=== PATIENT | male | born 1970 | race Caucasian/White ===

== ENCOUNTER 2018-07-10 20:40 | Emergency (ER) | payer OTHER ==
--- OUTSIDE RECORDS SUMMARY | 2018-07-10 20:42 | XMS REPORT | Clinical Summary ---
:1970 Author Organization [facility] Address [address] [place] [address] Care Team Providers Name Role Phone Gisell Wheeler MD Primary Care Provider Unavailable Allergies Active Allergy Reactions Severity Noted Date Comments Adhesive Other (See Comments) 07/01/2015 blisters Heparin 01/26/2016 Heparin Analogues Other (See Comments) 07/01/2015 thrombocytopenia Medications Medication Sig Dispensed Refills Start Date End Date Status esomeprazole (NEXIUM) 20 Take 20 mg by 0 Active MG capsule mouth 2 (two) times daily . PARoxetine (PAXIL) 10 MG Take 10 mg by 0 Active tablet mouth every morning. Active Problems Problem Noted Date Mesothelioma of peritoneum 01/26/2016 Peritoneal mesothelioma s/p ex lap and HIPEC 01/2508/01/2015 Social History Tobacco Use Types Packs/Day Years Used Date Current Every Day Smoker 1 1 Alcohol Use Drinks/Week oz/Week Comments Yes 1 Glasses of wine 1.2 1 Cans of beer Sex Assigned at Date Recorded Not on file Job Start Date Occupation Industry Not on file Not on file Not on file Travel History Travel Start Travel End No recent travel history available. Last Filed Vital Signs Not on file Plan of Treatment Not on file Results Not on fileafter 07/09/2017 Insurance Payer Benefit Plan / Group Subscriber ID Type Phone Address [employer] xxxxxxxxxx Advance Directives For more information, please contact:[facility] [facility] [place] [phone] Code Status Date Activated Date Inactivated Comments Full Code 01/26/2016 6:37 PM 02/03/2016 2:19 PM This code status was determined by: Patient Full Code 01/26/2016 6:44 AM 01/26/2016 6:37 PM This code status was determined by: Patient Full Code 08/01/2015 7:10 AM 08/01/2015 3:31 PM This code status was determined by: Patient
--- OUTSIDE RECORDS SUMMARY | 2018-07-10 20:43 | XMS REPORT ---
:1970 [facility] Address [address] [place] [address] [address] [place] [address] Care Team Providers Name Role Phone Unavailable Unavailable Unavailable Payers Payer Name Policy Type Policy Number Effective Date Expiration Date Problems This patient has no known problems. Allergies, Adverse Reactions, Alerts Allergy Allergy Status Severity Reaction(s) Onset Inactive Treating Comments Name Type Date Date Clinician payam MORTENSEN Active U 2016-01 00:00:0 0 Medications This patient has no known medications.
[2018-07-10] MEDS ORDERED: MORPHINE 4 MG/ML SYR ONE (21:57)
[2018-07-10] MEDS ORDERED: ONDANSETRON 4 MG/2 ML VIAL ONE (21:57)
[2018-07-10] MEDS ORDERED: MAGNE/ALUM HYDROXD 30 ML UCUP ONE (21:57)
[2018-07-10] MEDS ORDERED: NA CHLORIDE 0.9% 2,000 ML ONE (21:58)
[2018-07-10] MEDS ORDERED: LIDOCAINE VISCOUS 2% SOLN 15 ML UDC ONE (21:58)
[2018-07-10] MEDS ORDERED: FAMOTIDINE 20 MG/2 ML VIAL IV ONE (21:58)
[2018-07-10 22:28] LABS: Absolute Lymphocytes (CBC) 2.8 K/uL (0.7-4.9); Absolute Monocytes 1.8 K/uL (0.1-1.3); Absolute Neutrophil 14.5 K/uL (1.8-8.0); Basophils % 0.6 % (0-1.3); Eosinophils % 0.7 % (0-4.4); Hematocrit 48.1 % (39.6-49.0); Lymphocytes % 14.6 % (15.3-44.8); MPV 9.3 fL (7.6-11.3); Monocytes % 9.5 % (3.3-12.3); RBC Red Blood Cell Count 5.48 M/uL (4.33-5.43)
[2018-07-10 22:29] LABS: Protime INR 0.96
[2018-07-10 22:42] LABS: ALT/SGPT 25 U/L (12-78); AST/SGOT 15 U/L (15-37); Albumin 4.2 g/dL (3.4-5.0); Alkaline Phosphatase 85 U/L (45-117); BUN Blood Urea Nitrogen 21 mg/dL (7-18); Bicarbonate 29 mmol/L (21-32); Bilirubin Direct < 0.1 mg/dL (0-0.2); Bilirubin Total 0.4 mg/dL (0.2-1.0); Glucose Level 118 mg/dL (74-106); Lipase 103 U/L (73-393); Magnesium 2.1 mg/dL (1.8-2.4); NT PRO-BNP 16 pg/mL (<125); Potassium 4.2 mmol/L (3.5-5.1); Protein, Total 7.9 g/dL (6.4-8.2); Sodium Level 140 mmol/L (136-145); Troponin (Emerg Dept Use Only) < 0.02 ng/mL (0.0-0.045)
--- NOTE | 2018-07-10 22:46 | EDPHYS ---
Physician Documentation [facility] Name: Rosita Osborn Age: 47 yrs Sex: Male : 1970 Arrival Date: 07/10/2018 Time: 20:42 Bed 6 Private MD: TRAVIS Physician Jakob Espinal HPI: 07/10 21:42 This 47 yrs old Male presents to ER via Ambulatory with complaints of jan Abdominal Pain - severe, hx of CA. 21:42 The patient presents with abdominal pain in the upper abdomen, in the lower abdomen. jan Onset: The symptoms/episode began/occurred 1 day(s) ago. The symptoms do not radiate. Associated signs and symptoms: Pertinent positives: nausea and vomiting. The symptoms are described as constant, crampy. Modifying factors: The symptoms are alleviated by nothing, the symptoms are aggravated by nothing. Severity of pain: At its worst the pain was moderate severe in the emergency department the pain is unchanged. The patient has not experienced similar symptoms in the past. Historical: - Allergies: 21:07 No Known Allergies; ed1 - Home Meds: 21:07 Unable to obtain [Active]; ed1 - PMHx: 21:07 Cancer; ed1 - PSHx: 21:07 Multiple abdominal surgeries; Left shoulder; Knee surgery; ed1 - Immunization history:: Adult Immunizations up to date. - Social history:: Smoking status: Patient uses tobacco products, smokes one pack cigarettes per day. - Ebola Screening: : Patient denies travel to an Ebola-affected area in the 21 days before illness onset No symptoms or risks identified at this time. - Family history:: not pertinent. ROS: 21:42 Constitutional: Negative for fever, chills, and weight loss, Eyes: Negative for injury, jan pain, redness, and discharge, ENT: Negative for injury, pain, and discharge, Neck: Negative for injury, pain, and swelling, Cardiovascular: Negative for chest pain, palpitations, and edema, Respiratory: Negative for shortness of breath, cough, wheezing, and pleuritic chest pain, Back: Negative for injury and pain, : Negative for injury, bleeding, discharge, and swelling, MS/Extremity: Negative for injury and deformity, Skin: Negative for injury, rash, and discoloration, Neuro: Negative for headache, weakness, numbness, tingling, and seizure, Psych: Negative for depression, anxiety, suicide ideation, homicidal ideation, and hallucinations, Allergy/Immunology: Negative for hives, rash, and allergies, Endocrine: Negative for neck swelling, polydipsia, polyuria, polyphagia, and marked weight changes. 21:42 Abdomen/GI: Positive for abdominal pain, nausea and vomiting, of the right upper quadrant, left upper quadrant, right lower quadrant and left lower quadrant. Exam: 21:42 Constitutional: This is a well developed, well nourished patient who is awake, alert, jan and in no acute distress. Head/Face: Normocephalic, atraumatic. Eyes: Pupils equal round and reactive to light, extra-ocular motions intact. Lids and lashes normal. Conjunctiva and sclera are non-icteric and not injected. Cornea within normal limits. Periorbital areas with no swelling, redness, or edema. ENT: Nares patent. No nasal discharge, no septal abnormalities noted. Tympanic membranes are normal and external auditory canals are clear. Oropharynx with no redness, swelling, or masses, exudates, or evidence of obstruction, uvula midline. Mucous membranes moist. Neck: Trachea midline, no thyromegaly or masses palpated, and no cervical lymphadenopathy. Supple, full range of motion without nuchal rigidity, or vertebral point tenderness. No Meningismus. Chest/axilla: Normal chest wall appearance and motion. Nontender with no deformity. No lesions are appreciated. Cardiovascular: Regular rate and rhythm with a normal S1 and S2. No gallops, murmurs, or rubs. Normal PMI, no JVD. No pulse deficits. Respiratory: Lungs have equal breath sounds bilaterally, clear to auscultation and percussion. No rales, rhonchi or wheezes noted. No increased work of breathing, no retractions or nasal flaring. Back: No spinal tenderness. No costovertebral tenderness. Full range of motion. Male : Normal genitalia with no discharge or lesions. Skin: Warm, dry with normal turgor. Normal color with no rashes, no lesions, and no evidence of cellulitis. MS/ Extremity: Pulses equal, no cyanosis. Neurovascular intact. Full, normal range of motion. Neuro: Awake and alert, GCS 15, oriented to person, place, time, and situation. Cranial nerves II-XII grossly intact. Motor strength 5/5 in all extremities. Sensory grossly intact. Cerebellar exam normal. Normal gait. Psych: Awake, alert, with orientation to person, place and time. Behavior, mood, and affect are within normal limits. 21:42 Abdomen/GI: Inspection: abdomen appears normal, Bowel sounds: normal, Palpation: moderate abdominal tenderness, in all quadrants, Liver: no appreciated palpable abnormalities, Hernia: not appreciated. Vital Signs: 21:07 BP 137 / 91; Pulse 101; Resp 20; Temp 97.2(O); Pulse Ox 96% on R/A; Weight 134.72 kg; ed1 Height 6 ft. 5 in. (195.58 cm); Pain 10/10; 22:27 BP 128 / 92; Pulse 91; Resp 17; Temp 97.5; Pulse Ox 99% on R/A; rr5 23:00 BP 115 / 70; Pulse 90; Resp 18; Pulse Ox 99% on R/A; Pain 0/10; rr5 07/11 00:00 BP 125 / 74; Pulse 77; Resp 16; Pulse Ox 98% on R/A; Pain 0/10; rr5 01:00 BP 118 / 70; Pulse 79; Resp 16 S; Pulse Ox 98% ; rr5 02:00 BP 112 / 77; Pulse 75; Resp 17; Pulse Ox 98% on R/A; Pain 0/10; rr5 03:20 BP 121 / 70; Pulse 79; Resp 16; Temp 97.9; Pulse Ox 99% ; Pain 0/10; rr5 07/10 21:07 Body Mass Index 35.22 (134.72 kg, 195.58 cm) ed1 MDM: 07/10 21:10 Patient medically screened. [facility] 21:45 Data reviewed: vital signs, nurses notes, lab test result(s), EKG, radiologic studies, [facility] CT scan, plain films. 07/10 21:42 Order name: Basic Metabolic Panel; Complete Time: 02:06 [facility] 07/10 21:42 Order name: CBC with Diff; Complete Time: 22:30 [facility] 07/10 21:42 Order name: LFT's; Complete Time: 02:06 [facility] 07/10 21:42 Order name: Magnesium; Complete Time: 02:06 [facility] 07/10 21:42 Order name: NT PRO-BNP; Complete Time: 02:06 [facility] 07/10 21:42 Order name: PT-INR; Complete Time: 22:30 [facility] 07/10 21:42 Order name: Troponin (emerg Dept Use Only); Complete Time: 02:06 [facility] 07/10 21:42 Order name: XRAY Chest (1 view) [facility] 07/10 21:42 Order name: Lipase; Complete Time: 02:06 [facility] 07/10 22:37 Order name: CT Abd/Pelvis - W/Contrast [facility] 07/11 00:51 Order name: Urine Dipstick--Ancillary (enter results); Complete Time: 02:06 [facility] 07/10 21:42 Order name: EKG; Complete Time: 22:00 [facility] 07/10 21:42 Order name: Cardiac monitoring; Complete Time: 22:24 [facility] 07/10 21:42 Order name: EKG - Nurse/Tech; Complete Time: 22:25 [facility] 07/10 21:42 Order name: IV Saline Lock; Complete Time: 22:25 [facility] 07/10 21:42 Order name: Labs collected and sent; Complete Time: 22:25 [facility] 07/10 21:42 Order name: O2 Per Protocol; Complete Time: 22:25 [facility] 07/10 21:42 Order name: O2 Sat Monitoring; Complete Time: 22:35 [facility] 07/10 21:42 Order name: Urine Dipstick-Ancillary (obtain specimen); Complete Time: 01:25 [facility] Administered Medications: 21:50 Drug: GI Cocktail without - (Maalox Suspension 30 ml, Lidocaine Liquid 2 % 15 rr5 ml) Route: PO; 07/11 01:24 Follow up: Response: No adverse reaction rr5 07/10 22:00 Drug: NS 0.9% 1000 ml Route: IV; Rate: 1 bolus; Site: right antecubital; rr5 23:30 Follow up: Response: No adverse reaction; IV Status: Completed infusion; IV Intake: rr5 1000ml 22:00 Drug: Zofran 4 mg Route: PO; rr5 23:00 Follow up: Response: No adverse reaction rr5 22:03 Drug: Pepcid 20 mg Route: IVP; Site: right antecubital; rr5 23:10 Follow up: Response: No adverse reaction rr5 22:06 Drug: morphine 4 mg Route: IVP; Site: right antecubital; rr5 23:10 Follow up: Response: No adverse reaction rr5 23:30 Drug: Flagyl 500 mg Volume: 100 ml; Route: IVPB; Rate: 200 ml/hr; Infused Over: 30 rr5 mins; Site: right antecubital; 07/11 00:00 Follow up: Response: No adverse reaction; IV Status: Completed infusion; IV Intake: rr5 100ml 07/10 23:31 Drug: NS 0.9% 1000 ml Route: IV; Rate: 125 ml/hr; Site: right antecubital; rr5 07/11 03:20 Follow up: Response: No adverse reaction; IV Status: Order to discontinue infusion; IV rr5 Intake: 500ml 00:30 Drug: Cipro 400 mg Volume: 200 ml; Route: IVPB; Infused Over: 60 mins; Site: right rr5 antecubital; 01:30 Follow up: Response: No adverse reaction; IV Status: Completed infusion; IV Intake: rr5 200ml Disposition: 07/11/18 03:01 Patient has left against medical advice. Impression: Abdominal tenderness - jejunum thickening, enteritis, Vomiting, Elevated white blood cell count. - Patients states they are going to Home. - Condition is Stable. - Discharge Instructions: Abdominal Pain, Adult, Nausea and Vomiting, Adult, Nausea and Vomiting, Adult, [id number], Abdominal Pain, Adult, [id number]. - Prescriptions for Bentyl 20 mg Oral Tablet - take 1 tablet by ORAL route every 6 hours As needed; 20 tablet. Pepcid 20 mg Oral Tablet - take 1 tablet by ORAL route every 12 hours for 10 days; 20 tablet. Zofran 4 mg Oral Tablet - take 1 tablet by ORAL route every 12 hours As needed; 20 tablet. Follow up: Private Physician; When: Upon discharge from the Emergency Department; Reason: Recheck today's complaints, Continuance of care, Re-evaluation by your physician. - Problem is new. - Symptoms have improved. Signatures: Dispatcher [employer] EDMS Jakob Espinal MD MD cha Riggs, Erika RN RN ed1 Anibal Lee, SHARI RN rr5 Corrections: (The following items were deleted from the chart) 02:59 07/10 22:46 07/10/2018 22:46 Transfer ordered to [facility]. Diagnosis is Abdominal tenderness; Elevated white blood cell count; Vomiting. Reason for transfer: Higher level of care. Accepting physician is to [facility]. Condition is Fair. Problem is new. Symptoms have improved. [facility] 07/11 03:24 03:01 07/11/2018 03:01 Patients has left against medical advice. Impression: Abdominal rr5 tenderness - jejunum thickening, enteritis; Vomiting; Elevated white blood cell count. Patient states they are going to Home. Condition is Stable. Follow up: Private Physician; When: Upon discharge from the Emergency Department; Reason: Recheck today's complaints, Continuance of care, Re-evaluation by your physician. Problem is new. Symptoms have improved. jan
--- NOTE | 2018-07-10 22:46 | ER ---
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 Transition of care: patient was not received from another setting of care. Onset of symptoms was July 10, 2018. Risk Assessment: Do you want to hurt yourself or someone else? Patient reports no desire to harm self or others. Initial Sepsis Screen: Does the patient meet any 2 criteria? No. Patient's initial sepsis screen is negative. Does the patient have a suspected source of infection? No. Patient's initial sepsis screen is negative. Care prior to arrival: None. 21:05 Method Of Arrival: Ambulatory ed1 21:05 Acuity: NIKOLE 3 ed1 Triage Assessment: 21:07 General: Appears uncomfortable, Behavior is calm, cooperative. Pain: Complains of pain ed1 in abdomen Pain currently is 10 out of 10 on a pain scale. GI: Reports nausea, vomiting. Historical: - Allergies: 21:07 No Known Allergies; ed1 - Home Meds: 21:07 Unable to obtain [Active]; ed1 - PMHx: 21:07 Cancer; ed1 - PSHx: 21:07 Multiple abdominal surgeries; Left shoulder; Knee surgery; ed1 - Immunization history:: Adult Immunizations up to date. - Social history:: Smoking status: Patient uses tobacco products, smokes one pack cigarettes per day. - Ebola Screening: : Patient denies travel to an Ebola-affected area in the 21 days before illness onset No symptoms or risks identified at this time. - Family history:: not pertinent. Screenin:00 Abuse screen: Denies threats or abuse. Denies injuries from another. Nutritional rr5 screening: No deficits noted. Tuberculosis screening: No symptoms or risk factors identified. Fall Risk IV access (20 points). Total Finley Fall Scale indicates No Risk (0-24 pts). Assessment: 21:20 General: Appears in no apparent distress. uncomfortable, Behavior is calm, cooperative, rr5 appropriate for age. Pain: Complains of pain in abdomen Pain does not radiate. Pain currently is 10 out of 10 on a pain scale. Quality of pain is described as crampy, Pain began gradually, Is intermittent. 21:20 Neuro: Level of Consciousness is awake, alert, obeys commands, Oriented to person, rr5 place, time, situation, Appropriate for age. Cardiovascular: Capillary refill < 3 seconds Patient's skin is warm and dry. Respiratory: Airway is patent Respiratory effort is even, unlabored, Respiratory pattern is regular, symmetrical. GI: Abdomen is round Bowel sounds present X 4 quads. Guarding noted X 4 quads. Reports lower abdominal pain, upper abdominal pain, nausea, vomiting. : No signs and/or symptoms were reported regarding the genitourinary system. EENT: No signs and/or symptoms were reported regarding the EENT system. Derm: Skin is intact, Skin temperature is warm. Musculoskeletal: Circulation, motion, and sensation intact. Capillary refill < 3 seconds, Range of motion: intact in all extremities. 22:30 Reassessment: Patient appears in no apparent distress at this time. Patient is alert, rr5 oriented x 3, equal unlabored respirations, skin warm/dry/pink. pain free after the medications given Patient denies pain at this time. Patient states feeling better. Patient states symptoms have improved. 23:05 Reassessment: Patient appears in no apparent distress at this time. No changes from rr5 previously documented assessment. Patient is alert, oriented x 3, equal unlabored respirations, skin warm/dry/pink. no complaints made awaiting for CT scan. 07/11 00:05 Reassessment: Patient appears in no apparent distress at this time. Patient is alert, rr5 oriented x 3, equal unlabored respirations, skin warm/dry/pink. went for CT scan. 01:00 Reassessment: Patient appears in no apparent distress at this time. No changes from rr5 previously documented assessment. Patient denies pain at this time. Patient states feeling better. 02:00 Reassessment: Patient appears in no apparent distress at this time. Patient is alert, rr5 oriented x 3, equal unlabored respirations, skin warm/dry/pink. awaiting for CT scan result. 03:20 Reassessment: Patient appears in no apparent distress at this time. Patient is alert, rr5 oriented x 3, equal unlabored respirations, skin warm/dry/pink. ED provider explained to patient the need for transfer and admission. explained the condition but the patient want to be discharge and [facility]. AMA form signed. no complaints made discharge instruction given and explained. Patient denies pain at this time. Patient states feeling better. Patient states symptoms have improved. Vital Signs: 07/10 21:07 BP 137 / 91; Pulse 101; Resp 20; Temp 97.2(O); Pulse Ox 96% on R/A; Weight 134.72 kg; ed1 Height 6 ft. 5 in. (195.58 cm); Pain 10/10; 22:27 BP 128 / 92; Pulse 91; Resp 17; Temp 97.5; Pulse Ox 99% on R/A; rr5 23:00 BP 115 / 70; Pulse 90; Resp 18; Pulse Ox 99% on R/A; Pain 0/10; rr5 07/11 00:00 BP 125 / 74; Pulse 77; Resp 16; Pulse Ox 98% on R/A; Pain 0/10; rr5 01:00 BP 118 / 70; Pulse 79; Resp 16 S; Pulse Ox 98% ; rr5 02:00 BP 112 / 77; Pulse 75; Resp 17; Pulse Ox 98% on R/A; Pain 0/10; rr5 03:20 BP 121 / 70; Pulse 79; Resp 16; Temp 97.9; Pulse Ox 99% ; Pain 0/10; rr5 07/10 21:07 Body Mass Index 35.22 (134.72 kg, 195.58 cm) ed1 ED Course: 07/10 20:42 Patient arrived in ED. am2 21:06 Triage completed. ed1 21:07 Arm band placed on right wrist. ed1 21:09 Jakob Espinal MD is Attending Physician. jan 21:35 Patient has correct armband on for positive identification. Placed in gown. Bed in low rr5 position. Call light in reach. Side rails up X2. teletypesetter monitor on. Pulse ox on. NIBP on. 21:41 Anibal Lee RN is Primary Nurse. rr5 22:00 No provider procedures requiring assistance completed. Inserted saline lock: 20 gauge rr5 in right antecubital area, using aseptic technique. Blood collected. 22:26 XRAY Chest (1 view) In Process Unspecified. EDMS 23:56 initiated transfer to the [facility] spoke with Darrel. mw2 07/11 00:37 CT completed. Patient tolerated procedure well. Patient moved to CT via stretcher. eh Patient moved back from CT. 00:43 CT Abd/Pelvis - W/Contrast In Process Unspecified. EDMS 01:22 called [facility] spoke with Darrel to check the status of transfer. He stated the mw2 doctor has all of the pt's information and waiting to do a Dr to Dr. 03:20 IV discontinued, intact, bleeding controlled, No redness/swelling at site. Pressure rr5 dressing applied. Administered Medications: 07/10 21:50 Drug: GI Cocktail without - (Maalox Suspension 30 ml, Lidocaine Liquid 2 % 15 rr5 ml) Route: PO; 07/11 01:24 Follow up: Response: No adverse reaction rr5 07/10 22:00 Drug: NS 0.9% 1000 ml Route: IV; Rate: 1 bolus; Site: right antecubital; rr5 23:30 Follow up: Response: No adverse reaction; IV Status: Completed infusion; IV Intake: rr5 1000ml 22:00 Drug: Zofran 4 mg Route: PO; rr5 23:00 Follow up: Response: No adverse reaction rr5 22:03 Drug: Pepcid 20 mg Route: IVP; Site: right antecubital; rr5 23:10 Follow up: Response: No adverse reaction rr5 22:06 Drug: morphine 4 mg Route: IVP; Site: right antecubital; rr5 23:10 Follow up: Response: No adverse reaction rr5 23:30 Drug: Flagyl 500 mg Volume: 100 ml; Route: IVPB; Rate: 200 ml/hr; Infused Over: 30 rr5 mins; Site: right antecubital; 07/11 00:00 Follow up: Response: No adverse reaction; IV Status: Completed infusion; IV Intake: rr5 100ml 07/10 23:31 Drug: NS 0.9% 1000 ml Route: IV; Rate: 125 ml/hr; Site: right antecubital; rr5 07/11 03:20 Follow up: Response: No adverse reaction; IV Status: Order to discontinue infusion; IV rr5 Intake: 500ml 00:30 Drug: Cipro 400 mg Volume: 200 ml; Route: IVPB; Infused Over: 60 mins; Site: right rr5 antecubital; 01:30 Follow up: Response: No adverse reaction; IV Status: Completed infusion; IV Intake: rr5 200ml Intake: 07/10 23:30 IV: 1000ml; Total: 1000ml. rr5 07/11 00:00 IV: 100ml; Total: 1100ml. rr5 01:30 IV: 200ml; Total: 1300ml. rr5 03:20 IV: 500ml; Total: 1800ml. rr5 Outcome: 07/10 22:46 ER care complete, transfer ordered by MD. montoya 07/11 03:20 AMA AMA form signed rr5 Condition: stable Discharge instructions given to patient, family, Instructed on discharge instructions, follow up and referral plans. the need for transfer, medication usage, Demonstrated understanding of instructions, follow-up care, medications, Prescriptions given X 3. 03:24 Patient left the ED. rr5 Signatures: Dispatcher [employer] EDJakob Quiñones MD MD cha Hagler, Ervin eh Riggs, Erika, RN RN ed1 Faina Lucero am2 Flakita Pandya mw2 Anibal Lee, RN RN rr5
[2018-07-10] MEDS ORDERED: METRONIDAZOLE 500mg IVPB 500 MG/100 ML BAG IV ONE (23:24)
[2018-07-10] MEDS ORDERED: CIPROFLOXACIN 400mg IV 400 MG/200 ML BAG IV ONE (23:24)
[2018-07-11 01:09] LABS: Urine Blood TRACE (NEG); Urine Glucose NEGATIVE (NEG); Urine Protein NEGATIVE (NEG)
--- NOTE | 2018-07-11 06:15 | EKG ---
Test Date: 2018-07-10 Test Time: 21:51:01 Toppiece Chopper: RR MEASUREMENT RESULTS: Intervals: Rate: 85 AK: 162 QRSD: 104 QT: 372 QTc: 442 Dougherty: P: 32 AK: 162 QRS: 51 T: 31 INTERPRETIVE STATEMENTS: Normal sinus rhythm Normal ECG No previous ECG available for comparison Electronically Signed On 07-11-18 06:14:34 CDT by Justus Anaya
--- NOTE | 2018-07-11 08:26 | RAD REPORT ---
EXAM DESCRIPTION: RAD - Chest Single View - 07/10/2018 10:25 pm CLINICAL HISTORY: ABDOMINAL DISTENTION Chest pain. COMPARISON: No comparisons FINDINGS: Portable technique limits examination quality. Linear subsegmental atelectasis is present in the right lung base. The lungs are otherwise clear. The heart is upper limit of normal in size. No displaced fractures.
--- NOTE | 2018-07-11 10:40 | RAD REPORT ---
EXAM DESCRIPTION: Abdomen Pelvis W Contrast CLINICAL HISTORY: 47 years Male ABD PAIN COMPARISON: None TECHNIQUE: Images were obtained in axial, sagittal, and coronal planes. Intravenous and oral contras t was administered. Arterial and venous phase imaging was performed. This exam was performed according to our departmental dose-optimization program which includes use of Automated Exposure Control, adjustment of the mA and/or kV according to patient size and/or use of i terative reconstruction technique. FINDINGS: Liver appears enlarged. Decreased attenuation involving the liver possibly fatty change. N o focal enhancing lesions seen. Prior splenectomy and cholecystectomy. Unremarkable pancreas and adre nal glands bilaterally. No obstructing renal calcifications bilaterally. Punctate nonobstructing calcifications right kidney. No hydronephrosis bilaterally. Left renal cyst. Unremarkable bladder. No abnormality prostate gland. Calcification abdominal aorta with no dilatation seen. No retroperitoneal adenopathy or abnormal flui d collections noted. No peritoneal implants identified. Retroaortic left renal vein. Enlarged left in guinal lymph node measuring 3.1 cm in greatest transverse dimension. Appendix not well identified. Surgical clips adjacent to cecum indicating prior appendectomy. No yehuda l obstruction or perforation. Mucosal thickening jejunum possibly enteritis. Airspace attenuation right lower lobe. And atelectatic change. Suspected small right pleural effusion . Atelectatic change left lower lobe. No acute osseous abnormality. IMPRESSION: Mucosal thickening involving the jejunum. Suspected enteritis. Probable fatty change involving the liver. Right lower lobe infiltrate and atelectatic change. No evidence for ascites or peritoneal implants. Left inguinal adenopathy. Electronically signed by: Sienna Buckley MD 07/11/2018 12:58 AM CDT Due to temporary technical issues with the PACS/Fluency reporting system, reports are being signed by the in house radiologist as a courtesy to ensure prompt reporting. The interpreting radiologist is f ully responsible for the content of the report.
== END 2018-07-11 03:24 | disposition left against medical advice (07) ==
LOC: ER 20:40
DX: K52.9 Noninfective gastroenteritis and colitis, unspecified (principal); D72.829 Elevated white blood cell count, unspecified; R11.10 Vomiting, unspecified; F17.210 Nicotine dependence, cigarettes, uncomplicated; Z85.9 Personal history of malignant neoplasm, unspecified
CPT/HCPCS: 36415; 71045; 74177; 80048; 80076; 81003; 83690; 83735; 83880; 84484; 85025; 85610; 93005; 96361; 96365; 96367; 96375; 99285; J0744; J2405; J7030; Q9967

== ENCOUNTER 2019-02-26 21:49 | Emergency (ER) | payer OTHER ==
--- OUTSIDE RECORDS SUMMARY | 2019-02-26 21:51 | XMS REPORT | Summary of Care ---
:1970 Author Organization [facility] [place] [address] Care Team Providers Name Role Phone Cecilia Garland Primary Care Provider Reason for Visit Reason Comments Initial Consultation NOV- RA Consult, Test & Treat (Routine) Status Reason Specialty Diagnoses / Referred By Referred To Procedures Contact Contact Patient Rheumatology Diagnoses RA Cecilia Garland Michael Responsible Procedures RHEUMATOLOGY NEW OFFICE VISIT Juanito Humphreys MD [address] [place] [address] [address] [facility] [address] [address] Phone: [place], [place] [phone] Fax: Encounter Details Date Type Department Care Team Description 11/30/2018 Office Visit [facility] Erich Culver, Initial Consultation Medicine (NOV- RA) Rheumatology [address] [place] [address], [address] [place] [phone] Allergies No Known Allergiesdocumented as of this encounter (statuses as of 11/30/2018) Medications Medication Sig Dispensed Refills Start Date End Date Status omeprazole Take 20 mg by 0 Active (PRILOSEC) 20 MG mouth two capsule times daily. ESCITALOPRAM Take 20 mg by 0 Active OXALATE OR mouth daily. metformin Take 500 mg by 0 Active (GLUCOPHAGE) 500 MG mouth 2 times tablet daily (with meals). diclofenac Take 1 Tab by 120 Tab 3 11/30/2018 Active (VOLTAREN) 75 MG EC mouth two tablet times daily. Multiple Vitamin Take by 0 11/30/2018 Discontinued (MULTI VITAMIN mouth. MENS) TABS Reported on 02/10/2016 lorazepam (ATIVAN) Take 1 mg by 0 11/30/2018 Discontinued 1 MG tablet mouth every 8 hours as needed for Anxiety. Reported on 02/24/2016 Hydrocodone-Acetami Take by 0 11/30/2018 Discontinued nophen 10-300 MG mouth. TABS Reported on 02/24/2016 HYDROmorphone Take 4 mg by 0 11/30/2018 Discontinued (DILAUDID) 4 MG mouth every 3 tablet hours as needed for Pain. Esomeprazole Take by 0 11/30/2018 Discontinued Magnesium (NEXIUM mouth. OR) Reported on 02/24/2016 paroxetine (PAXIL) Take 10 mg by 0 11/30/2018 Discontinued 10 MG tablet mouth daily. documented as of this encounter (statuses as of 11/30/2018) Active Problems Problem Noted Date [facility]2015 Ascites 07/03/2015 [facility] 07/03/2015 [facility] 07/03/2015 Diabetes mellitus type 2 in obese [facility] 07/03/2015 documented as of this encounter (statuses as of 11/30/2018) Social History Tobacco Use Types Packs/Day Years Used Date Current Some Day Smoker 1 13 Smokeless Tobacco: Never Used Alcohol Use Drinks/Week oz/Week Comments Yes seldom Sex Assigned at Date Recorded Not on file Job Start Date Occupation Industry Not on file Not on file Not on file Travel History Travel Start Travel End No recent travel history available. documented as of this encounter Last Filed Vital Signs Vital Sign Reading Time Taken Comments Blood Pressure 125/78 11/30/2018 1:55 PM CDT Pulse 104 11/30/2018 1:55 PM CDT Temperature 36.5 C (97.7 F) 11/30/2018 1:55 PM CDT Respiratory Rate 16 11/30/2018 1:55 PM CDT Oxygen Saturation 94% 11/30/2018 1:55 PM CDT Inhaled Oxygen Concentration - - Weight 140.1 kg (308 lb 12.8 oz) 11/30/2018 1:55 PM CDT Height 195.6 cm (6' 5") 11/30/2018 1:55 PM CDT Body Mass Index 36.62 11/30/2018 1:55 PM CDT documented in this encounter Patient Instructions Patient InstructionsWErich jackson MD - 11/30/2018 1:30 PM CDTWe will try diclofenac 75 mg BID. We will do blood work today. After I talk to your oncologist we can decide on medications. I imagine they will want to wait 5 years before TNF inhibitors. I am open to trying sulfasalazine or Arava. See me in 1 month Erich Culver documented in this encounter Progress Notes Erich Culver MD - 11/30/2018 1:30 PM CDT RHEUMATOLOGY CLINIC HISTORY OF PRESENT ILLNESS: Rosita Osborn is a 48 y.o. male with a past medical history of epithelioid peritoneal mesothelioma s/p treatment, T2DM, and CHF who presents for evaluation of joint pain. He is being referred by Dr. Cecilia Garland for Rheumatoid Arthritis. He reports a history of vs RA since 2010. 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 He has been on multiple medications prior to his cancer diagnosis including Humira (did not work), Enbrel (worked), Remicaide (worked), Orencia (no benefit) , sulfasalazine, MTX (no benefit), and prednisone. He does not think he was on Arava or Rituximab. He has had issues in all his joints but he does reports a history of "snapped" tendons in his feet and epicondylitis. Since his cancer diagnosis he has been off all immunosuppression. He is s/p ex lap cytoreductive surgery, and HIPEC. He has been in remission since around early 2016. He currently has pain in his MCPs and PIPs with 30 minutes of AM stiffness. He also has pain around his epicondyls, wrist, shoulders, knees, ankles, MTPs, and hips. His pain is pretty much constant. He take ibuprofen for pain and CBD oil. He recently had a MRI showing bilateral avascular necrosis. His oncology team is Dr. Gisell Cooper and Dr. Ramírez. REVIEW OF SYSTEMS 12 pt ROS negative unless noted above PAST MEDICAL HISTORY Past Medical History: Diagnosis Date Acid reflux Ankylosing spondylitis ([facility]) Anosmia Anxiety Arthritis Autoimmune disorder ([facility]) Bleeding disorder ([facility]) Calculus of kidney Depression Diabetes ([facility]) Diverticulitis of colon (without mention of hemorrhage)(562.11) H/O blood clots Hearing loss History of blood transfusion Hyperlipidemia Hypertension Memory loss Migraine Rheumatoid arteritis (H[facility]ode) Tinnitus Transient ischemic attack Varicose veins PAST SURGICAL HISTORY Past Surgical History: Procedure Laterality Date HX ANKLE SURGERY Bilateral HX CHOLECYSTECTOMY HX FOOT SURGERY Bilateral HX HERNIA REPAIR 02/13/19 HX JOINT REPLACEMENT Bilateral HX SHOULDER SURGERY Left MEDICATIONS Current Outpatient Medications on File Prior to Visit Medication Sig Dispense Refill ESCITALOPRAM OXALATE OR Take 20 mg by mouth daily. metformin (GLUCOPHAGE) 500 MG tablet Take 500 mg by mouth 2 times daily ( with meals). omeprazole (PRILOSEC) 20 MG capsule Take 20 mg by mouth two times daily. No current facility-administered medications on file prior to visit. ALLERGIES Allergies as of 11/30/2018 (No Known Allergies) FAMILY HISTORY FH: Family History Problem Relation Name Age of Onset Breast Cancer Mother Depression Mother Depression Father Hypertension Father High Cholesterol Father Diabetes Father Depression Brother SOCIAL HISTORY Social History Tobacco Use Smoking status: Current Some Day Smoker Packs/day: 1.00 Years: 13.00 Pack years: 13.00 Smokeless tobacco: Never Used Substance Use Topics Alcohol use: Yes Comment: seldom Drug use: No PHYSICAL EXAM VS : Blood pressure 125/78, pulse 104, temperature 97.7 F (36.5 C), temperature source Oral, resp. rate 16, height 6' 5" (1.956 m), weight (!) 308 lb 12.8 oz (140.1 kg), SpO2 94 %. GENERAL: NAD, pleasant, healthy appearing HEENT: sclera anicteric, OP clear, EOMI NECK: supple CV: RRR CHEST: regular work of breathing ABD: soft NT EXT: no edema Neuro: grossly intact, normal gait, motor exam with nl strength in UE and LE SKIN no rash, no nail pits, no onycholysis, no nodules MUSCULOSKELETAL EXAM : DIP- no Heberdens nodes, no synovitis, nontender (bilateral) PIP - no Bouchards nodes,no synovitis, nontender (bilateral) MCP - neg squeeze, no synovitis or effusion, nontender (bilateral) WRIST - FROM to palmar and dorsi flexion, no effusion, no synovitis, tender to touch ELBOWS - no effusion, no synovitis, no nodules or tophi, FROM, no flexion contracture, nontender, tender to his bilateral lateral epicondyl SHOULDERS - FROM but tender HIPS - tender with limited ROM KNEES - no effusion, no synovitis, nontender ANKLES no synovitis or effusion MTPs neg squeeze tenderness, no synovitis (bilateral) ADDITIONAL DATA Labs and Xrays were reviewed. IMPRESSION AND PLAN Mr.Cleven Mike Osborn is a 48 y.o. male with a past medical history of epithelioid peritoneal mesothelioma s/p treatment, T2DM, and CHF who presents for evaluation of joint pain. At this time Mr. Osborn has findings of tendonitis in the setting of a previously + HLAB27. 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 He does report a history of RA and thus I will check RF/CCP again. Unfortunately he also has findings of mechanical disease in his joints with avascular necrosis to his hips and crepitus to his knees. Treatment will be difficult due to his cancer diagnosis. He has been in remission for 2+ years. Typically biologics are not used until 5 years of remission. Ideally I would restart his TNF inhibitor but will hold for now. We will try NSAIDs to help with a component of axial spondylarthritis. We will try diclofenac 75 mg BID. Pending his workup I would favor trying sulfasalazine or Arava. I will need to discuss this with his oncological team prior since these are both immunosuppressive. If he is RF or CCP positive we could also consider Rituximab. Once he is 5 years out from cancer we can consider TNF inhibitors or Cosentyx. Orencia would have been a good option since it has the lowest risk of cancer but he did not respond previously. Follow up in 1 month Erich Culver MD Department of Medicine Section of Immunology, Allergy and Rheumatology Orders Placed This Encounter Procedures CBC and differential Comprehensive metabolic panel Sedimentation rate, automated C-reactive protein Rheumatoid factor CCP AB (IGG/IGA) Quantiferon-TB Gold Plus 4 Tubes Hepatitis C antibody Hepatitis B surface antigen HEPATITIS B SURFACE AB QUANT HEPATITIS B CORE AB TOTAL W/REFL IGM documented in this encounter Plan of Treatment Date Type Specialty Care Team Description 01/23/2019 Office Visit Rheumatology Erich Culver MD [address] [address] [phone] Name Type Priority Associated Diagnoses Order Schedule CBC W/AUTO DIFF WITH Lab Routine Arthralgia, unspecified Ordered: 2018 PLATELETS joint Chronic midline back pain, unspecified back location COMPREHENSIVE METABOLIC Lab Routine Arthralgia, unspecified Ordered: 2018 PANEL joint Chronic midline back pain, unspecified back location SEDIMENTATION RATE MODIFIED Lab Routine Arthralgia, unspecified Ordered: WESTERGREN joint Chronic midline back pain, unspecified back location C-REACTIVE PROTEIN Lab Routine Arthralgia, unspecified Ordered: 11/30/2018 joint Chronic midline back pain, unspecified back location RHEUMATOID FACTOR Lab Routine Arthralgia, unspecified Ordered: 11/30/2018 joint Chronic midline back pain, unspecified back location CCP AB (IGG/IGA) Lab Routine Arthralgia, unspecified Ordered: 11/30/2018 joint Chronic midline back pain, unspecified back location QUANTIFERON TB GOLD PLUS 4 Lab Routine Arthralgia, unspecified Ordered: 11/2018 TUBES joint Chronic midline back pain, unspecified back location HEPATITIS C ANTIBODY Lab Routine Arthralgia, unspecified Ordered: 2018 joint Chronic midline back pain, unspecified back location HEPATITIS B SURFACE ANTIGEN Lab Routine Arthralgia, unspecified Ordered: joint Chronic midline back pain, unspecified back location HEPATITIS B SURFACE AB Lab Routine Arthralgia, unspecified Ordered: 2018 QUANT joint Chronic midline back pain, unspecified back location HEPATITIS B CORE AB TOTAL Lab Routine Arthralgia, unspecified Ordered: 11/2018 W/REFL IGM joint Chronic midline back pain, unspecified back location Health Maintenance Due Date Last Done Comments TETANUS SHOT (ADULT) 1984 ANNUAL DIABETIC FOOT EXAM 11/08/1987 ANNUAL DIABETIC RETINOPATHY 11/08/1987 SCREENING BMI FOLLOW UP PLAN 11/08/1987 HIV SCREENING 11/08/1987 FLU VACCINE > 6 MONTHS Addressed 11/30/2018 Overridden with the (Declined) intention of not completing the topic documented as of this encounter Results Not on filedocumented in this encounter Visit Diagnoses Diagnosis Arthralgia, unspecified joint - Primary Chronic midline back pain, unspecified back location Mesothelioma (HCCode) Other malignant neoplasm without specification of site HLA B27 (HLA B27 positive) Genetic susceptibility to other disease Encounter for long-term (current) use of NSAIDs Encounter for long-term (current) use of non-steroidal anti-inflammatories New medication added documented in this encounter Insurance Payer Benefit Plan Subscriber ID Effective Phone Address Type / Group Dates [facility] xxxxxxxxx 2018-Pres [phone] VISN [id number] [address] [facility] [id number] [place] [address] documented as of this encounter
--- OUTSIDE RECORDS SUMMARY | 2019-02-26 21:51 | XMS REPORT ---
:1970 [facility] Address [address] [place] [address] [address] [place] [address] Care Team Providers Name Role Phone Unavailable [...]
[2019-02-26] MEDS ORDERED: ACETAMINOPHEN 500 MG TAB ONE (22:34)
[2019-02-26] MEDS ORDERED: FAMOTIDINE 20 MG/2 ML VIAL IV ONE (22:34)
[2019-02-26] MEDS ORDERED: NA CHLORIDE 0.9% 1,000 ML ONE (22:34)
[2019-02-26] MEDS ORDERED: CEFEPIME 2 GM VIAL ONE (22:34)
[2019-02-26] MEDS ORDERED: NA CHLORIDE 0.9% 100 ML IV ONE (22:34)
[2019-02-26 23:19] LABS: Absolute Lymphocytes (CBC) 2.8 K/uL (0.7-4.9); Basophils % 0.4 % (0-1.3); Lymphocytes % 10.9 % (15.3-44.8); MPV 9.3 fL (7.6-11.3); RBC Red Blood Cell Count 4.82 M/uL (4.33-5.43)
[2019-02-26 23:24] LABS: Protime INR 0.95
[2019-02-26 23:43] LABS: ALT/SGPT 40 U/L (12-78); AST/SGOT 23 U/L (15-37); Albumin 3.5 g/dL (3.4-5.0); Alkaline Phosphatase 78 U/L (45-117); BUN Blood Urea Nitrogen 20 mg/dL (7-18); Bicarbonate 25 mmol/L (21-32); Bilirubin Direct 0.1 mg/dL (0-0.2); Bilirubin Total 0.3 mg/dL (0.2-1.0); CKMB Creatine Kinase MB 2.1 ng/mL (0.3-3.6); Creatine Phosphokinase 196 U/L (39-308); Glucose Level 250 mg/dL (74-106); Lipase 127 U/L (73-393); Magnesium 1.8 mg/dL (1.8-2.4); NT PRO-BNP 13 pg/mL (<125); Potassium 3.8 mmol/L (3.5-5.1); Protein, Total 6.9 g/dL (6.4-8.2); Sodium Level 137 mmol/L (136-145); Troponin (Emerg Dept Use Only) < 0.02 ng/mL (0.0-0.045)
[2019-02-27] MEDS ORDERED: NA CHLORIDE 0.9% 500 ML ONE (00:12)
[2019-02-27] MEDS ORDERED: VANCOMYCIN 1 GM/VIAL ONE (00:12)
[2019-02-27] MEDS ORDERED: NA CHLORIDE 0.9% 2,000 ML ONE (00:14)
[2019-02-27 00:22] LABS: Blood Morphology Comment NOT SEEN (NOT SEEN); Platelet Estimate ADEQ
[2019-02-27 00:30] LABS: Urine Culture Reflex Order NOT NEEDED
[2019-02-27 00:30] LABS: Urine Blood 1+ (NEG); Urine Glucose TRACE (NEG); Urine Protein NEGATIVE (NEG); Urine Specific Gravity 1.025 (1.005-1.030); Urine pH 5.5 (5.0-7.0)
[2019-02-27 00:43] LABS: Urine Bacteria <20 /HPF (NONE SEEN); Urine RBC <5 /HPF (NONE SEEN)
[2019-02-27] MEDS ORDERED: ONDANSETRON 4 MG/2 ML VIAL ONE (01:03)
--- NOTE | 2019-02-27 02:17 | ER ---
Nurse's Notes [facility] Name: Rosita Osborn Age: 48 yrs Sex: Male : 1970 Arrival Date: 02/26/2019 Time: 21:55 Bed 5 Private MD: Diagnosis: Fever. Chills. Leukocytosis. S/P Colonoscopy Presentation: 02/26 22:08 Presenting complaint: Patient states: colonoscopy today at the [facility]. Started dm5 running fever started at 2030. Chills. Transition of care: patient was not received from another setting of care. Onset of symptoms was February 26, 2019. Risk Assessment: Do you want to hurt yourself or someone else? Patient reports no desire to harm self or others. Initial Sepsis Screen: Does the patient meet any 2 criteria? Temp <36.0*C (96.8*F)) or > 38.3*C (100.9*F). HR > 90 bpm. Yes Does the patient have a suspected source of infection? Yes: Other: immunocompromised and recent colonoscopy with biopsies. Care prior to arrival: None. 22:08 Method Of Arrival: Ambulatory dm5 22:08 Acuity: NIKOLE 3 dm5 Historical: - Allergies: 22:11 No Known Allergies; dm5 - PMHx: 22:11 Cancer; dm5 - PSHx: 22:11 colonoscopy; spleen, gallbladder, intrabdominal chemo; dm5 - Immunization history:: Adult Immunizations up to date. - Social history:: Smoking status: Patient uses tobacco products, smokes one-half pack cigarettes per day. - Family history:: not pertinent. - Ebola Screening: : No symptoms or risks identified at this time. Screenin:36 Abuse screen: Denies threats or abuse. Nutritional screening: No deficits noted. ea Tuberculosis screening: No symptoms or risk factors identified. Fall Risk IV access (20 points). Assessment: 22:30 General: Appears uncomfortable, Behavior is appropriate for age. Pain: Denies pain. ea Neuro: Level of Consciousness is awake, alert, obeys commands, Oriented to person, place, time, situation. Cardiovascular: Patient's skin is warm and dry. Respiratory: Airway is patent Respiratory effort is even, unlabored, Respiratory pattern is regular, symmetrical. Derm: Skin is pink, warm \T\ dry. Musculoskeletal: Circulation, motion, and sensation intact. 23:30 Reassessment: Patient and/or family updated on plan of care and expected duration. Pain ea level reassessed. Patient is alert, oriented x 3, equal unlabored respirations, skin warm/dry/pink. 02/27 00:30 Reassessment: Patient and/or family updated on plan of care and expected duration. Pain ea level reassessed. Patient is alert, oriented x 3, equal unlabored respirations, skin warm/dry/pink. 01:55 Reassessment: Patient and/or family updated on plan of care and expected duration. Pain ea level reassessed. Patient is alert, oriented x 3, equal unlabored respirations, skin warm/dry/pink. Discharge instruction given to patient, verbalized the understanding of instruction. Pt left ED ambulatory accompanied by family, pt tolerating well. Patient states feeling better. Vital Signs: 02/26 22:11 BP 126 / 76; Pulse 128; Resp 22; Temp 101.2; Pulse Ox 94% on R/A; Weight 140.61 kg; dm5 Height 6 ft. 5 in. (195.58 cm); Pain 0/10; 23:35 BP 115 / 66; Pulse 114; Resp 20; Temp 98.8; Pulse Ox 98% ; ea 02/27 00:10 BP 113 / 76; Pulse 108; Resp 20; Pulse Ox 100% ; ea 01:55 BP 112 / 78; Pulse 99; Resp 18; Temp 97.8; Pulse Ox 97% on R/A; ea 02/26 22:11 Body Mass Index 36.76 (140.61 kg, 195.58 cm) dm5 ED Course: 02/26 21:55 Patient arrived in ED. ds1 22:10 Triage completed. dm5 22:11 Arm band placed on right wrist. dm5 22:22 Jakob Espinal MD is Attending Physician. jan 22:25 Maria Eugenia Cheek, SHARI is Primary Nurse. ea 22:33 Radiology exam delayed due to lab results not completed at this time. (BUN/Creatinine) jb2 IV insertion attempt and/or patient not having appropriate IV at this time. 22:35 Inserted saline lock: 20 gauge in left antecubital area, using aseptic technique. Blood ea collected. 22:38 XRAY Chest (1 view) In Process Unspecified. EDMS 23:36 Patient has correct armband on for positive identification. Bed in low position. Call ea light in reach. Side rails up X2. 23:45 Attending Physician role handed off by Jakob Espinal MD pkl 23:45 Pete Betancourt MD is Attending Physician. pkl 02/27 02:07 No provider procedures requiring assistance completed. IV discontinued, intact, ea bleeding controlled, No redness/swelling at site. Pressure dressing applied. 02:22 CT Abd/Pelvis - IV Contrast Only In Process Unspecified. EDMS Administered Medications: Discontinued: vancoMYCIN 2 grams IVPB at calculated rate once 02/26 22:29 Drug: Tylenol 1000 mg Route: PO; ea 23:55 Follow up: Response: No adverse reaction; Temperature is decreased ea 22:32 Drug: NS 0.9% (30 ml/kg) 30 ml/kg Route: IV; Rate: bolus; Site: left antecubital; ea 02/27 02:10 Follow up: Response: No adverse reaction; IV Status: Completed infusion; IV Intake: ea 2000ml 02/26 22:35 Drug: Pepcid 20 mg Route: IVP; Site: left antecubital; ea 23:55 Follow up: Response: No adverse reaction ea 23:27 Drug: Cefepime 2 grams Route: IVPB; Rate: 200 ml/hr; Infused Over: 30 mins; Site: left ea antecubital; 02/27 00:15 Follow up: Response: No adverse reaction; IV Status: Completed infusion ea 00:19 Drug: vancoMYCIN 2 grams Route: IVPB; Rate: calculated rate; Site: left antecubital; ea 01:05 Drug: Zofran 4 mg Route: IVP; Site: left antecubital; ea 01:50 Follow up: Response: No adverse reaction; Nausea is decreased ea Intake: 02:10 IV: 2000ml; Total: 2000ml. ea Outcome: 01:52 Discharge ordered by . pkl 02:07 Discharged to home ambulatory, with family. ea 02:07 Condition: stable 02:07 Discharge instructions given to patient, Instructed on discharge instructions, follow up and referral plans. medication usage, Demonstrated understanding of instructions, follow-up care, medications, Prescriptions given X 1. 02:10 Patient left the ED. ea Signatures: Dispatcher [facility] Jeniffer Bee, SHARI RN dm5 Jakob Espinal MD MD cha Lam, Pin, MD MD pkl Buechter, Jesse jbJuana Espinosa Elena, RN RN ea
--- NOTE | 2019-02-27 02:19 | EDPHYS ---
Physician Documentation [facility] Name: Rosita Osborn Age: 48 yrs Sex: Male : 1970 Arrival Date: 02/26/2019 Time: 21:55 Bed 5 Private MD: ED Physician Pete Morrissey HPI: 02/26 22:37 This 48 yrs old Male presents to ER via Ambulatory with complaints of Fever, jan Chills. 22:37 The patient reports fever, that was measured at 101.2 degrees Fahrenheit. Onset: The jan symptoms/episode began/occurred today. Modifying factors: there are no obvious modifying factors. Associated signs and symptoms: Pertinent positives: abdominal pain, chills. Severity of symptoms: At their worst the symptoms were mild moderate in the emergency department the symptoms are unchanged. The patient has not experienced similar symptoms in the past. Historical: - Allergies: 22:11 No Known Allergies; dm5 - PMHx: 22:11 Cancer; dm5 - PSHx: 22:11 colonoscopy; spleen, gallbladder, intrabdominal chemo; dm5 - Immunization history:: Adult Immunizations up to date. - Social history:: Smoking status: Patient uses tobacco products, smokes one-half pack cigarettes per day. - Family history:: not pertinent. - Ebola Screening: : No symptoms or risks identified at this time. ROS: 22:37 Eyes: Negative for injury, pain, redness, and discharge, ENT: Negative for injury, jan pain, and discharge, Neck: Negative for injury, pain, and swelling, Respiratory: Negative for shortness of breath, cough, wheezing, and pleuritic chest pain, Back: Negative for injury and pain, : Negative for injury, bleeding, discharge, and swelling, MS/Extremity: Negative for injury and deformity, Skin: Negative for injury, rash, and discoloration, Neuro: Negative for headache, weakness, numbness, tingling, and seizure, Psych: Negative for depression, anxiety, suicide ideation, homicidal ideation, and hallucinations, Allergy/Immunology: Negative for hives, rash, and allergies, Endocrine: Negative for neck swelling, polydipsia, polyuria, polyphagia, and marked weight changes, Hematologic/Lymphatic: Negative for swollen nodes, abnormal bleeding, and unusual bruising. 22:37 Constitutional: Positive for body aches, chills, fever, malaise. 22:37 Cardiovascular: Positive for palpitations. 22:37 Respiratory: Positive for cough. 22:37 Abdomen/GI: Positive for abdominal pain. 22:37 Skin: Positive for 22:37 Neuro: Positive for weakness. Exam: 22:37 Head/Face: Normocephalic, atraumatic. Eyes: Pupils equal round and reactive to light, jan extra-ocular motions intact. Lids and lashes normal. Conjunctiva and sclera are non-icteric and not injected. Cornea within normal limits. Periorbital areas with no swelling, redness, or edema. ENT: Nares patent. No nasal discharge, no septal abnormalities noted. Tympanic membranes are normal and external auditory canals are clear. Oropharynx with no redness, swelling, or masses, exudates, or evidence of obstruction, uvula midline. Mucous membranes moist. Neck: Trachea midline, no thyromegaly or masses palpated, and no cervical lymphadenopathy. Supple, full range of motion without nuchal rigidity, or vertebral point tenderness. No Meningismus. Chest/axilla: Normal chest wall appearance and motion. Nontender with no deformity. No lesions are appreciated. Respiratory: Lungs have equal breath sounds bilaterally, clear to auscultation and percussion. No rales, rhonchi or wheezes noted. No increased work of breathing, no retractions or nasal flaring. Abdomen/GI: Soft, non-tender, with normal bowel sounds. No distension or tympany. No guarding or rebound. No evidence of tenderness throughout. Back: No spinal tenderness. No costovertebral tenderness. Full range of motion. Skin: Warm, dry with normal turgor. Normal color with no rashes, no lesions, and no evidence of cellulitis. MS/ Extremity: Pulses equal, no cyanosis. Neurovascular intact. Full, normal range of motion. Neuro: Awake and alert, GCS 15, oriented to person, place, time, and situation. Cranial nerves II-XII grossly intact. Motor strength 5/5 in all extremities. Sensory grossly intact. Cerebellar exam normal. Normal gait. Psych: Awake, alert, with orientation to person, place and time. Behavior, mood, and affect are within normal limits. 22:37 Cardiovascular: Rate: tachycardic, Rhythm: regular, Pulses: Pulses are 4+ in bilateral radial, brachial, femoral, popliteal, posterior tibial and and dorsalis pedis arteries.. Heart sounds: normal, Edema: is not appreciated, JVD: is not appreciated. 22:37 Abdomen/GI: Inspection: abdomen appears normal, Bowel sounds: normal, Palpation: abdomen is soft and non-tender, Liver: no appreciated palpable abnormalities, Hernia: not appreciated. Vital Signs: 22:11 BP 126 / 76; Pulse 128; Resp 22; Temp 101.2; Pulse Ox 94% on R/A; Weight 140.61 kg; dm5 Height 6 ft. 5 in. (195.58 cm); Pain 0/10; 23:35 BP 115 / 66; Pulse 114; Resp 20; Temp 98.8; Pulse Ox 98% ; ea 02/27 00:10 BP 113 / 76; Pulse 108; Resp 20; Pulse Ox 100% ; ea 01:55 BP 112 / 78; Pulse 99; Resp 18; Temp 97.8; Pulse Ox 97% on R/A; ea 02/26 22:11 Body Mass Index 36.76 (140.61 kg, 195.58 cm) dm5 MDM: 02/26 22:22 Patient medically screened. [facility] 22:41 Data reviewed: vital signs, nurses notes, lab test result(s), EKG, radiologic studies, [facility] CT scan, plain films. 22:58 ED course: DR MORRISSEY TO ASSUME CARE AND DISPO PATIENT APPROPRIATELY. [facility] 02/27 01:48 ED course: Discussed lab. and imaging studies with patient and family. Patient said he pkl is feeling much better. want to go home. Advised to follow up with PCP in 2 to 3 days and repeat CBC. Patient understood instructions. 02/26 22:27 Order name: Basic Metabolic Panel; Complete Time: 23:46 [facility] 02/26 22:27 Order name: CBC with Diff; Complete Time: 00:50 [facility] 02/26 22:27 Order name: LFT's; Complete Time: 23:46 [facility] 02/26 22:27 Order name: Magnesium; Complete Time: 23:46 [facility] 02/26 22:27 Order name: NT PRO-BNP; Complete Time: 23:46 [facility] 02/26 22:27 Order name: PT-INR; Complete Time: 23:46 [facility] 02/26 22:27 Order name: Troponin (emerg Dept Use Only); Complete Time: 23:46 [facility] 02/26 22:27 Order name: Blood Culture Adult (2) [facility] 02/26 22:27 Order name: Ckmb; Complete Time: 23:46 [facility] 02/26 22:27 Order name: CPK; Complete Time: 23:46 [facility] 02/26 22:27 Order name: Lactate; Complete Time: 23:46 [facility] 02/26 22:27 Order name: Lipase; Complete Time: 23:46 [facility] 02/26 22:27 Order name: Procalcitonin; Complete Time: 00:50 [facility] 02/26 22:27 Order name: Ptt, Activated; Complete Time: 23:46 [facility] 02/26 22:27 Order name: XRAY Chest (1 view) [facility] 02/26 22:27 Order name: EKG; Complete Time: 22:30 [facility] 02/26 22:27 Order name: Urine Microscopic Only; Complete Time: 00:50 [facility] 02/26 22:27 Order name: CT Abd/Pelvis - IV Contrast Only [facility] 02/26 22:27 Order name: Urine Culture [facility] 02/26 22:35 Order name: Flu; Complete Time: 00:50 02/26 23:41 Order name: Manual Differential; Complete Time: 00:50 [facility] 02/26 23:46 Order name: Strep; Complete Time: 00:50 pkl 02/27 00:00 Order name: Urine Dipstick--Ancillary (enter results) sd 02/27 00:31 Order name: Urine Dipstick-Ancillary [facility] 02/26 22:27 Order name: Cardiac monitoring; Complete Time: 23:55 [facility] 02/26 22:27 Order name: EKG - Nurse/Tech; Complete Time: 23:55 [facility] 02/26 22:27 Order name: IV Saline Lock; Complete Time: 23:34 [facility] 02/26 22:27 Order name: Labs collected and sent; Complete Time: 23:34 [facility] 02/26 22:27 Order name: O2 Per Protocol; Complete Time: 23:34 [facility] 02/26 22:27 Order name: O2 Sat Monitoring; Complete Time: 23:55 [facility] 02/26 22:27 Order name: Accucheck [facility] 02/26 22:27 Order name: IV Saline Lock - Large Bore; Complete Time: 23:32 [facility] 02/26 22:27 Order name: Urine Dipstick-Ancillary (obtain specimen); Complete Time: 23:56 [facility] Administered Medications: Discontinued: vancoMYCIN 2 grams IVPB at calculated rate once 02/26 22:29 Drug: Tylenol 1000 mg Route: PO; ea 23:55 Follow up: Response: No adverse reaction; Temperature is decreased ea 22:32 Drug: NS 0.9% (30 ml/kg) 30 ml/kg Route: IV; Rate: bolus; Site: left antecubital; ea 02/27 02:10 Follow up: Response: No adverse reaction; IV Status: Completed infusion; IV Intake: ea 2000ml 02/26 22:35 Drug: Pepcid 20 mg Route: IVP; Site: left antecubital; ea 23:55 Follow up: Response: No adverse reaction ea 23:27 Drug: Cefepime 2 grams Route: IVPB; Rate: 200 ml/hr; Infused Over: 30 mins; Site: left ea antecubital; 02/27 00:15 Follow up: Response: No adverse reaction; IV Status: Completed infusion ea 00:19 Drug: vancoMYCIN 2 grams Route: IVPB; Rate: calculated rate; Site: left antecubital; ea 01:05 Drug: Zofran 4 mg Route: IVP; Site: left antecubital; ea 01:50 Follow up: Response: No adverse reaction; Nausea is decreased ea Disposition: 02/27/19 01:52 Discharged to Home. Impression: Fever. Chills. Leukocytosis. S/P Colonoscopy. - Condition is Stable. - Prescriptions for Augmentin 875- 125 mg Oral Tablet - take 1 tablet by ORAL route every 12 hours for 7 days; 14 tablet. - Medication Reconciliation Form, Thank You Letter, Antibiotic Education, Prescription Opioid Use form. - Follow up: Private Physician; When: 2 - 3 days; Reason: Re-evaluation by your physician. - Problem is new. - Symptoms have improved. Signatures: Dispatcher [employer] Jeniffer Palma RN RN dmJakob Wise MD MD cha Lam, Pin, MD MD pkl Antunez, Elena, RN RN ea Corrections: (The following items were deleted from the chart) 02:10 01:52 02/27/2019 01:52 Discharged to Home. Impression: Fever. Chills. Leukocytosis. S/P ea Colonoscopy. Condition is Stable. Forms are Medication Reconciliation Form, Thank You Letter, Antibiotic Education, Prescription Opioid Use. Follow up: Private Physician; When: 2 - 3 days; Reason: Re-evaluation by your physician. Problem is new. Symptoms have improved. pkl
[2019-02-27 02:54] VITALS: BP 112/78; TEMP 97.8; O2SAT 97
--- NOTE | 2019-02-27 07:52 | RAD REPORT ---
EXAM DESCRIPTION: Angelica Single View02/26/2019 10:38 pm CLINICAL HISTORY: Abdominal pain COMPARISON: June 2018 FINDINGS: The lungs appear clear of acute infiltrate. The heart is normal size IMPRESSION: No acute abnormalities displayed
--- NOTE | 2019-02-27 08:58 | EKG ---
Test Date: 2019-02-26 Test Time: 23:44:13 [employer]: ASHLEE MEASUREMENT RESULTS: Intervals: Rate: 110 MD: 172 QRSD: 102 QT: 338 QTc: 457 [place]: P: 38 MD: 172 QRS: 52 T: 29 INTERPRETIVE STATEMENTS: Sinus tachycardia Otherwise normal ECG Compared to ECG 07/10/2018 21:51:01 Sinus rhythm no longer present Electronically Signed On 02-27-19 08:57:43 TECHNICAL OPERATOR by Bin Berg
--- NOTE | 2019-02-27 12:17 | RAD REPORT ---
EXAM DESCRIPTION: CT - Abdomen Pelvis W Contrast - 02/27/2019 2:06 am CLINICAL HISTORY: ABD PAIN COMPARISON: 07/11/2018. TECHNIQUE: CT ABDOMEN PELVIS WITH IV CONTRAST on 02/26/2019 10:27 PM COMBINATION PRESSER This exam was performed according to our departmental dose-optimization program, which includes autom ated exposure control, adjustment of the mA and/or kV according to patient size and/or use of iterati ve reconstruction technique. FINDINGS: Lower lungs are clear. Abdomen: Liver is enlarged and fatty in attenuation. There is no biliary dilatation. Cholecystectom y was performed. Splenectomy was performed. Pancreas is normal. The adrenal glands and kidneys are un remarkable. Abdominal aorta is normal in course and caliber without aneurysm. There is no free air. There is no r etroperitoneal adenopathy. Pelvis: There is mild thickening of the hepatic flexure of the colon with mild surrounding inflammati on. Urinary bladder is unremarkable. There is no free fluid. Appendix is not seen. Skeleton: There are no acute osseous findings. No suspicious bony lesions. IMPRESSION: Mild thickening of much of the hepatic flexure of the proximal colon. This may represent segmental colitis. Recommend follow-up colonoscopy following resolution of acute symptoms to exclude an underlying lesion. Electronically signed by: Sherwin Renner MD 02/27/2019 1:15 AM COMBINATION PRESSER Due to temporary technical issues with the PACS/Fluency reporting system, reports are being signed by the in house radiologist as a courtesy to ensure prompt reporting. The interpreting radiologist is f ully responsible for the content of the report.
== END 2019-02-27 02:10 | disposition home or self-care (01) ==
LOC: ER 21:49
DX: D72.829 Elevated white blood cell count, unspecified (principal); Z98.890 Other specified postprocedural states; F17.210 Nicotine dependence, cigarettes, uncomplicated; Z85.9 Personal history of malignant neoplasm, unspecified
CPT/HCPCS: 96365; 93005; 87040 ×2; 87070; 87088; 85025; 80048; 36415; 83735; 82550; 85610; 80076; 87081; 83605; 85730; 81003; 81015; 84484; 82553; 83690; 84145; 83880; 87804 ×2; 74177; 71045; 96375; 99284; 96366; Q9967; J0692; J7040; J7030 ×2; J2405; 87086